=== PATIENT | female | born 1950 | race Caucasian/White ===

== ENCOUNTER 2018-10-15 12:46 | Outpatient (RCR) | payer MEDICARE, OTHER ==
[2018-09-10] MEDS: TBO-FILGRASTIM 300 MCG/0.5 ML (GRANIX) SQ SCH (13:27)
[2018-09-10 13:30] VITALS: BP 133/77
[2018-09-11] MEDS: TBO-FILGRASTIM 300 MCG/0.5 ML (GRANIX) SQ SCH (08:55)
[2018-09-11 08:56] VITALS: BP 145/59
[2018-09-24 13:18] VITALS: BP 152/77
[2018-09-25 09:19] VITALS: BP 126/59
[2018-10-01 13:01] VITALS: BP 141/58
[2018-10-08 12:35] VITALS: BP 119/59
[2018-10-08] MEDS: TBO-FILGRASTIM 300 MCG/0.5 ML (GRANIX) SQ SCH (12:54)
[~2018-10-15] VITALS: Ht 160 cm; Wt 44.5 kg
[2018-10-15 12:45] VITALS: BP 120/87
[~2018-10-15 12:46] MED LIST: ACHD5005; B COMPLEX VITAMIN; DARVOCET; FERROUS SULFATE; LVF500T; MSL400TEC; MTR500T; PROC10TA23; TBO-FILGRASTIM 300 MCG/0.5 ML (GRANIX) SQ ONE; TRM50TRX; VITAMIN B12
[2018-10-15] MEDS: TBO-FILGRASTIM 300 MCG/0.5 ML (GRANIX) SQ SCH (13:06)
== END 2018-11-26 07:28 | disposition home or self-care (01) ==
LOC: SDC 12:46
PROVIDERS: ATTEND Internal Medicine Hematology & Oncology
DX: D70.1 Agranulocytosis secondary to cancer chemotherapy (principal); T45.1X5A Adverse effect of antineoplastic and immunosuppressive drugs, initial encounter
CPT/HCPCS: 96372; J1447

== ENCOUNTER 2019-04-20 09:24 | Outpatient (RCR) | payer MEDICARE, OTHER ==
[~2019-04-20 09:24] MED LIST changes: -TBO-FILGRASTIM 300 MCG/0.5 ML (GRANIX) SQ ONE
== END 2019-07-05 | disposition home or self-care (01) ==
LOC: ONC 09:24
PROVIDERS: ATTEND Radiology Radiation Oncology
DX: Z51.0 Encounter for antineoplastic radiation therapy (principal); C79.31 Secondary malignant neoplasm of brain; C50.912 Malignant neoplasm of unspecified site of left female breast; K50.90 Crohn's disease, unspecified, without complications; N18.9 Chronic kidney disease, unspecified; Z99.2 Dependence on renal dialysis; Z79.899 Other long term (current) drug therapy; Z79.891 Long term (current) use of opiate analgesic; Z80.3 Family history of malignant neoplasm of breast; Z80.49 Family history of malignant neoplasm of other genital organs; Z80.41 Family history of malignant neoplasm of ovary; Z80.42 Family history of malignant neoplasm of prostate
CPT/HCPCS: 77290; 77295; 77300; 77334; 77336; 77417; 77470; 99204

== ENCOUNTER 2019-04-25 15:12 | Emergency (ER) | payer MEDICARE, OTHER ==
[~2019-04-25] VITALS: Ht 160 cm; Wt 41.0 kg
--- NOTE | 2019-04-25 15:23 | ED General ---
General Stated Complaint: LEG WEAKNESS Source of Information: Patient, EMS, Family Exam Limitations: No Limitations History of Present Illness Date Seen by Provider: Apr 25, 2019 Time Seen by Provider: 15:20 Initial Comments 69-year-old female presents with bilateral lower extremity weakness. 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 Patient recently finished up radiation therapy. Patient and family reports for the last couple days she's been getting progressively weaker in her legs and today was unable to stand up. Patient had dialysis this morning and [place] and was week then and has progressively gotten worse. Patient denies any increased pain, fever chills nausea vomiting or any other systemic complaints. Allergies and Home Medications Allergies Coded Allergies: No Known Drug Allergies (Verified , 07/21/07) Uncoded Allergies: FAMILY HISTORY OF MALIGNANT HYPERTHERMIA (Adverse Reaction, Unknown, 10/08/07) Patient Home Medication List Home Medication List Reviewed: Yes Review of Systems Review of Systems Constitutional: No chills, No fever; weakness Respiratory: no symptoms reported Cardiovascular: no symptoms reported Gastrointestinal: no symptoms reported Genitourinary: no symptoms reported Musculoskeletal: no symptoms reported Skin: no symptoms reported Psychiatric/Neurological: Weakness (bilateral lower extremities) Past Fiigmma-Tiypdp-Baerwd Hx Past Med/Social Hx: Reviewed Nursing Past Med/Soc Hx Physical Exam Vital Signs Vital Signs - First Documented 04/25/19 04/25/19 15:24 17:41 Temp 36.1 Pulse 79 Resp 17 B/P (MAP) 106/47 (66) Pulse Ox 97 Capillary Refill : Height, Weight, BMI Height: 5'3.00" Weight: 98lbs. 3.2oz. [id number]; BMI Method: General Appearance: No Apparent Distress, Thin, Other (frail ) Neck: Supple Respiratory: Lungs Clear, Normal Breath Sounds Cardiovascular: Regular Rate, Rhythm, No Edema Gastrointestinal: Non Tender, Soft Extremity: Other (weakness in bilateral lower legs) Neurologic/Psychiatric: Alert, Oriented x3, Normal Mood/Affect, serging machine operator II-XII Norm as Tested, Motor Weakness (bilateral lower extremity) Skin: Normal Color, Warm/Dry Progress/Results/Core Measures Suspected Sepsis SIRS Temperature: Pulse: Respiratory Rate: Laboratory Tests 04/25/19 15:33: White Blood Count 4.5 Blood Pressure / Mean: Laboratory Tests 04/25/19 15:33: Creatinine 2.66H, Platelet Count 40L, Total Bilirubin 0.7 Results/Orders Lab Results Laboratory Tests Test 04/25/19 15:33 04/25/19 16:40 Range/Units White Blood Count 4.5 4.3-11.0 10^3/uL Red Blood Count 3.26 L 4.35-5.85 10^6/uL Hemoglobin 11.2 L 11.5-16.0 G/DL Hematocrit 36 35-52 % Mean Corpuscular Volume 111 H 80-99 FL Mean Corpuscular Hemoglobin 34 25-34 PG Mean Corpuscular Hemoglobin Concent 31 L 32-36 G/DL Red Cell Distribution Width 17.1 H 10.0-14.5 % Platelet Count 40 L 130-400 10^3/uL Mean Platelet Volume 12.9 H 7.4-10.4 FL Neutrophils (%) (Auto) 81 H 42-75 % Lymphocytes (%) (Auto) 9 L 12-44 % Monocytes (%) (Auto) 8 0-12 % Eosinophils (%) (Auto) 0 0-10 % Basophils (%) (Auto) 0 0-10 % Neutrophils # (Auto) 3.6 1.8-7.8 X 10^3 Lymphocytes # (Auto) 0.4 L 1.0-4.0 X 10^3 Monocytes # (Auto) 0.4 0.0-1.0 X 10^3 Eosinophils # (Auto) 0.0 0.0-0.3 10^3/uL Basophils # (Auto) 0.0 0.0-0.1 10^3/uL Neutrophils % (Manual) 81 % Lymphocytes % (Manual) 5 % Monocytes % (Manual) 6 % Eosinophils % (Manual) 1 % Reactive Lymphocytes 7 % Macrocytosis SLIGHT Sodium Level 141 135-145 MMOL/L Potassium Level 4.4 3.6-5.0 MMOL/L Chloride Level 100 98-107 MMOL/L Carbon Dioxide Level 28 21-32 MMOL/L Anion Gap 13 5-14 MMOL/L Blood Urea Nitrogen 11 7-18 MG/DL Creatinine 2.66 H 0.60-1.30 MG/DL Estimat Glomerular Filtration Rate 18 BUN/Creatinine Ratio 4 Glucose Level 130 H 70-105 MG/DL Calcium Level 8.5 8.5-10.1 MG/DL Corrected Calcium 9.2 8.5-10.1 MG/DL Magnesium Level 1.8 1.6-2.4 MG/DL Total Bilirubin 0.7 0.1-1.0 MG/DL Aspartate Amino Transf (AST/SGOT) 38 H 5-34 U/L Alanine Aminotransferase (ALT/SGPT) 20 0-55 U/L Alkaline Phosphatase 123 40-136 U/L Total Protein 5.6 L 6.4-8.2 GM/DL Albumin 3.1 L 3.2-4.5 GM/DL Urine Color YELLOW Urine Clarity CLEAR Urine pH 8.5 5-9 Urine Specific [place] 1.015 L 1.016-1.022 Urine Protein 1+ H NEGATIVE Urine Glucose (UA) NEGATIVE NEGATIVE Urine Ketones NEGATIVE NEGATIVE Urine Nitrite NEGATIVE NEGATIVE Urine Bilirubin NEGATIVE NEGATIVE Urine Urobilinogen 0.2 < = 1.0 MG/DL Urine Leukocyte Esterase 1+ H NEGATIVE Urine RBC (Auto) TRACE-I NEGATIVE Urine RBC NONE /HPF Urine WBC 25-50 H /HPF Urine Squamous Epithelial Cells 10-25 H /HPF Urine Crystals NONE /LPF Urine Bacteria MODERATE H /HPF Urine Casts NONE /LPF Urine Mucus NEGATIVE /LPF Urine Culture Indicated YES My Orders Orders - SWEET,DEBI L DO Cbc With Automated Diff (04/25/19 15:23) Comprehensive Metabolic Panel (04/25/19 15:23) Magnesium (04/25/19 15:23) Ua Culture If Indicated (04/25/19 15:23) Ed Iv/Invasive Line Start (04/25/19 15:44) Ns (Ivpb) (Sodium Chloride 0.9%) (04/25/19 15:44) Manual Differential (04/25/19 15:33) Urine Culture (04/25/19 16:40) Medications Given in ED Current Medications Medications Dose Ordered Sig/Jesus Route Start Time Stop Time Status Last Admin Dose Admin Sodium Chloride 250 ml @ 0 mls/hr Q0M ONCE IV 04/25/19 15:44 04/25/19 15:46 DC 04/25/19 15:56 999 MLS/HR Vital Signs/I&O 04/25/19 04/25/19 15:24 17:41 Temp 36.1 Pulse 79 71 Resp 17 B/P (MAP) 106/47 (66) 98/53 Pulse Ox 97 97 Capillary Refill : Progress Note : Time: 17:29 Progress Note Patient with no acute findings. Patient does have some failure to thrive. Patient was able to ambulate partially down the gonzalez without difficulty. I discussed with them that at this time there is nothing that I could admit her for. However patient does likely need increased home health care and probable physical therapy at home. Patient's primary care provider his already left for the day and I'm unable to get a hold of them help further ranges. I highly recommended to the family that they call first thing in the morning get an appointment and have further home services arranged. I did discuss with them the possible transferred to or [facility] since she is a dialysis patient with failure to thrive. Patient herself would prefer not to do that at this time. Patient to be discharged home and she return to the ER as needed. Departure Impression Primary Impression: Failure to thrive syndrome, adult Additional Impression: Generalized weakness Disposition: 01 HOME, SELF-CARE Condition: Stable/Unchanged Departure-Patient Inst. Referrals: SELF,SUSHILA FISCHER (PCP) Primary Care Physician Patient Instructions: Failure to Thrive, Adult, Generalized Weakness (DC) Add. Discharge Instructions: Please call your primary care provider first thing in the morning to help arrange further home health care and outpatient services Return to the ER as needed The emergency department focuses on treating and ruling out life-threatening diseases. Whenever possible, a diagnosis is given. However, most patients are given an impression based on their history, physical exam, and workup during your brief time in the ER. Information about probable diagnosis and other educational material has been provided. Please take the time to read and understand this information. It is very important that you follow up with a physician as discussed during the visit today. Failure to adhere to your follow-up instructions may lead to severe disability, injury, or so please make sure to keep your appointments or obtain one as requested. Please keep in mind the emergency department is not designed to your primary care or "family doctor" and nonurgent issues are best evaluated by an outpatient physician DEBI SWEET DO Apr 25, 2019 15:23
[2019-04-25] MEDS ORDERED: NS (IVPB) 250 ML IV ONE (15:44)
[2019-04-25 16:12] LABS: WHITE BLOOD COUNT 4.5 10^3/uL (4.3-11.0)
[2019-04-25 16:13] LABS: BASOPHILS % (AUTO) 0 % (0-10); EOSINOPHILS % (AUTO) 0 % (0-10); HEMATOCRIT 36 % (35-52); HEMOGLOBIN 11.2 G/DL (11.5-16.0); LYMPHOCYTES # (AUTO) 0.4 X 10^3 (1.0-4.0); LYMPHOCYTES % (AUTO) 9 % (12-44); MEAN CORPUSCULAR HEMOGLOBIN 34 PG (25-34); MEAN CORPUSCULAR HGB CONC 31 G/DL (32-36); MEAN CORPUSCULAR VOLUME 111 FL (80-99); MEAN PLATELET VOLUME 12.9 FL (7.4-10.4); MONOCYTES # (AUTO) 0.4 X 10^3 (0.0-1.0); MONOCYTES % (AUTO) 8 % (0-12); NEUTROPHILS # (AUTO) 3.6 X 10^3 (1.8-7.8); NEUTROPHILS % (AUTO) 81 % (42-75); PLATELET COUNT 40 10^3/uL (130-400); RED CELL DISTRIBUTION WIDTH 17.1 % (10.0-14.5)
[2019-04-25 16:25] LABS: CREATININE SERUM 2.66 MG/DL (0.60-1.30); POTASSIUM 4.4 MMOL/L (3.6-5.0)
[2019-04-25 16:26] LABS: BILIRUBIN,TOTAL 0.7 MG/DL (0.1-1.0); CALCIUM 8.5 MG/DL (8.5-10.1); MAGNESIUM 1.8 MG/DL (1.6-2.4); TOTAL PROTEIN 5.6 GM/DL (6.4-8.2)
[2019-04-25 16:27] LABS: ALBUMIN 3.1 GM/DL (3.2-4.5)
[2019-04-25 16:54] LABS: BILIRUBIN,URINE NEGATIVE (NEGATIVE); CLARITY,URINE CLEAR; COLOR,URINE YELLOW; GLUCOSE, URINE (UA) NEGATIVE (NEGATIVE); KETONES,URINE NEGATIVE (NEGATIVE); LEUKOCYTE ESTERASE ,URINE 1+ (NEGATIVE); NITRITE,URINE NEGATIVE (NEGATIVE); PH,URINE 8.5 (5-9); PROTEIN,URINE 1+ (NEGATIVE)
[2019-04-25 16:59] LABS: EOSINOPHILS % (MANUAL) 1 %; LYMPHOCYTES % (MANUAL) 5 %; MONOCYTES % (MANUAL) 6 %; NEUTROPHILS % (MANUAL) 81 %; REACTIVE LYMPHOCYTES 7 %
[2019-04-25 17:03] LABS: BACTERIA,URINE MODERATE /HPF; WBC,URINE 25-50 /HPF
[2019-04-25] MEDS ORDERED: cefTRIAXone FOR IV USE 1,000 MG in WATER (STERILE) FOR INJECTION 10 ML IV ONE (17:15)
[2019-04-25 17:41] VITALS: BP 98/53
--- OUTSIDE RECORDS SUMMARY | 2019-05-04 14:32 | XMS REPORT | Referral Summary ---
Author Author Via [facility] cis Organization Via [facility] Address Unknown Phone Unavailable Care Team Providers Care Film Reader Name Role Phone Hermes Smith PCP Unavailable Encounter [facility] [id number] Date(s): 01/05/15 - 01/05/15 Via [facility] [address] [place] [address] Discharge Disposition: 01-Home or Self Care Attending Physician: Randolph Kahn MD Admitting Physician: Randolph Kahn MD Vital Signs Most recent to 1 oldest [Reference Range]: Temperature Temporal 36.8 degC Artery [36.3-37.8 (01/05/15 2:10 PM) degC] Peripheral Pulse 80 bpm Rate [60-100 bpm] (01/05/15 2:50 PM) Heart Rate Monitored 72 bpm [60-100 bpm] (01/05/15 2:10 PM) Respiratory Rate 16 br/min [14-20 br/min] (01/05/15 2:50 PM) Blood Pressure 126/78 mmHg [90-140/60-90 mmHg] (01/05/15 2:50 PM) Mean Arterial 82 mmHg Pressure, Cuff (01/05/15 2:10 PM) SpO2 98 % (01/05/15 2:50 PM) Problem List Condition Effective Dates Status Health Status Informan t Renal failure (ARF), Active patient acute on chronic(Confirmed) Crohn Active patient disease(Confirmed) Breast Active patient cancer(Confirmed) Tobacco Active patient user(Confirmed) Allergies, Adverse Reactions, Alerts No Known Allergies Medications Benadryl 25 mg, Oral, Bedtime (once a day), 0 Refill(s) Start Date: 01/05/15 Status: Ordered Lortab 10/325 1 tabs, Oral, q6hr, 0 Refill(s) Start Date: 01/05/15 Status: Ordered PhosLo Gelcap 667 mg oral capsule 667 mg 1 caps, Oral, TIDPC, # 90 caps, 0 Refill(s) Start Date: 01/05/15 Status: Ordered Results Hematology Most recent to 1 oldest [Reference Range]: WBC [4.8-10.8 5.4 10*3/uL 10*3/uL] (01/05/15 7:36 AM) RBC [4.00-5.20] 3.48 *LOW* (01/05/15 7:36 AM) Hgb [12.0-16.0 11.5 gm/dL gm/dL] *LOW* (01/05/15 7:36 AM) Hct [37.0-47.0 %] 34.5 % *LOW* (01/05/15 7:36 AM) MCV [82.0-99.0 fL] 99.1 fL *HI* (01/05/15 7:36 AM) MCH [27.0-32.0 pg] 33.0 pg *HI* (01/05/15 7:36 AM) MCHC [32.0-36.0 33.3 gm/dL gm/dL] (01/05/15 7:36 AM) RDW [11.5-14.5 %] 13.9 % (01/05/15 7:36 AM) Platelet [150-400 146 10*3/uL 10*3/uL] *LOW* (01/05/15 7:36 AM) MPV [9.4-12.4 fL] 9.3 fL *LOW* (01/05/15 7:36 AM) Chemistry Most recent to 1 oldest [Reference Range]: Sodium Lvl [136-144 130 mEq/L mEq/L] *LOW* (01/05/15 7:36 AM) Potassium Lvl 5.5 mEq/L [3.6-5.1 mEq/L] *HI* (01/05/15 7:36 AM) Chloride [99-109 97 mEq/L mEq/L] *LOW* (01/05/15 7:36 AM) CO2 [22-32 mEq/L] 23 mEq/L (01/05/15 7:36 AM) AGAP [3-20] 10 (01/05/15 7:36 AM) BUN [4-20 mg/dL] 26 mg/dL *HI* (01/05/15 7:36 AM) Glucose Lvl [70-100 115 mg/dL mg/dL] *HI* (01/05/15 7:36 AM) Creatinine Lvl 5.05 mg/dL [0.44-1.03 mg/dL] *HI* (01/05/15 7:36 AM) eGFR [>60] 9 1 *ABN* (01/05/15 7:36 AM) Calcium Lvl 10.0 mg/dL [8.6-10.0 mg/dL] (01/05/15 7:36 AM) Albumin Lvl [3.5-4.8 3.9 gm/dL gm/dL] (01/05/15 7:36 AM) Phosphorus [2.4-4.7 5.3 mg/dL 2 mg/dL] *HI* (01/05/15 7:36 AM) Blood Glucose, 111 mg/dL Capillary [70-100 *HI* mg/dL] (01/05/15 7:06 AM) 1Result Comment: Multiply eGFR results by 1.21 for race. 2Result Comment: High dosages of liposomal Amphotericin B (AmBisome) therapy or other drug preparations that use a liposomal envelope to facilitate drug delivery may cause falsely elevated results for phosphorus. Immunizations No data available for this section Procedures Procedure Date Related Diagnosis Body Site Insertion Dialysis Catheter1 01/05/15 Bowel obstruction Breast lumpectomy C SECTION Cholecystectomy and exploration of bile duct Colostomy DUAL LUMEN DIALYSIS CATHETER 1auto-populated from documented surgical case Social History Social History Type Response Smoking Status Current some day smoker; Ty pe: Cigarettes; Tobacco use per day: Pack Assessment and Plan No data available for this section
--- OUTSIDE RECORDS SUMMARY | 2019-05-04 14:32 | XMS REPORT ---
Author Author [facility]isa [facility] Address [address] [place] [address] Care Team Providers Care Chaperone Name Role Phone SUSHILA VASQUEZ Unavailable PROBLEMS Type Condition ICD9-CM Code [id number] Code Onset Dates Condition S tatus SNOMED Code Problem Metabolic acidosis E87.2 Active 5 4389159 Problem Thrombocytopathia D69.1 Active 26 0453588 Problem Anemia of renal disease D63.1 Active 378009028 Problem Kidney failure N19 Active 68040 005 Problem Chronic pain G89.29 Active 1157226 1 Problem Hypokalemia E87.6 Active 91045879 Problem Crohn disease K50.90 Active 493812 06 Problem Malignant neoplasm of unspecified site of left female breast C50.912 Active 526053313 Problem Cigarette nicotine dependence F17.200 Active 157119079 Problem Renal insufficiency N28.9 Active 328705018 Problem Seizure R56.9 Active 41831465 Problem Dependence on renal dialysis Z99.2 A ctive 209837413 Problem Other chronic pain G89.29 Active 8 0835360 ALLERGIES No Information ENCOUNTERS Encounter Location Date Diagnosis [address] [place] [address] Apr, [address] [place] [address] Feb, [address] [place] [address] Jan, [address] [place] [address] Dec, [address] [place] [address] Nov, [address] [place] [address] Oct, [facility] [address] [place] [address] Oct, Other chronic pain G89.29 an d Low back pain M54.5 [facility] [address] [place] [address] Sep, [facility] [address] [place] [address] Sep, [facility] [address] [place] [address] Sep, [facility] [address] [place] [address] Sep, [facility] [address] [place] [address] Aug, [facility] [address] [place] [address] July, [facility] [address] [place] [address] Jun, [facility] [address] [place] [address] May, [facility] [address] [place] [address] Apr, IMMUNIZATIONS No Known Immunizations SOCIAL HISTORY Never Assessed REASON FOR VISIT Medication Refill PLAN OF CARE VITAL SIGNS MEDICATIONS Medication Instructions Dosage Frequency Start Date End Date Duration S tatus Hydrocodone-Acetaminophen 10-325 MG Orally every 8 hrs 1 tablet as needed 8h May, 28 days Active RESULTS No Results PROCEDURES No Known procedures INSTRUCTIONS MEDICATIONS ADMINISTERED No Known Medications MEDICAL (GENERAL) HISTORY Type Description Date Medical History Chronic pain Medical History Dependence on renal dialysis Medical History Thrombocytopathia Medical History Crohn disease Medical History Renal insufficiency Medical History Metabolic acidosis Medical History Hypokalemia Medical History Anemia of renal disease Medical History Malignant neoplasm of unspecified site o f left female breast Medical History Cigarette nicotine dependence Medical History Kidney failure Medical History Seizure Surgical History breast biopsy Surgical History cholecystectomy Surgical History colostomy Surgical History lumpectomy, left breast Surgical History colectomy
--- OUTSIDE RECORDS SUMMARY | 2019-05-04 14:32 | XMS REPORT | Referral Summary ---
Author Author Via [facility] cis Organization Via [facility] Address Unknown Phone Unavailable Care Team Providers Care Rotary Swaging Machine Operator Name Role Phone Self, Hermes Mason PCP Unavailable Encounter Date(s): 01/05/15 - 01/05/15 Via [facility] [address] [place] [address] [phone] Final: Hypertensive chronic kidney disease with stage 5 chronic kidney disease o r end stage renal disease Final: End stage renal disease Final: Malignant neoplasm of unspecified site of left female breast Final: Crohn's disease, unspecified, without complications Final: Nicotine dependence, unspecified, uncomplicated Final: Dependence on renal dialysis Discharge Disposition: 01-Home or Self Care Attending [...] Refill(s) Start Date: 01/05/15 Status: Ordered Lortab 10325 1 tabs, Oral, q6hr, 0 Refill(s) Start [...]
== END 2019-04-25 17:41 | disposition home or self-care (01) ==
LOC: EDUNIT# 15:12 → ER FS 15:13
DX: R62.7 Adult failure to thrive (principal); R53.1 Weakness
CPT/HCPCS: 36415; 80053; 81000; 83735; 85007; 85027; 87088